=== PATIENT | female | born 1945 | race Caucasian/White ===

== ENCOUNTER → 2017-06-20 | Day surgery (SDC) | payer MEDICARE ==
[~2017-06-20] VITALS: Ht 149.9 cm; Wt 75.5 kg
[~2017-06-20] MED LIST: ATOR10TA15 PO; BUPIVACAINE HCL PF 0.5% 30 ML VIAL ONE; CEPH-460 PO; CHLORHEXIDINE GLUCONATE 2 % 1 PACK (2 CLOTHS) TOPICAL PRN; CITA10TA4 PO; CYCL10TA PO; DEXAMETHASONE SOD PHOS 4 MG/ML VIAL ONE; ERGO50000 PO; FENO130C PO; FLUT50SP EACH NARE; INSULIN HUMAN REGULAR 1,000 UNITS/10 ML VIAL SQ PRN; LACTATED RINGER'S 1000 ML IV PRN; LIDOCAINE HCL 2% 50 ML VIAL ONE; METOPROLOL TARTRATE 25 MG TAB PO PRN; MIDAZOLAM HCL 2 MG/2 ML VIAL ONE; NEOMYCIN/POLYMYXIN 1 ML G.U. IRRIGANT ONE; NORC5TAB PO; OMEP20CA5 PO; ONDANSETRON HCL 4 MG/2 ML VIAL ONE; PERC5TAB12 PO; POVIDONE IODINE 5% (ANTISEPSIS KIT) 4 APPLICATIONS EACH NARE PRN; SODIPAK2; SODIUM CHLORID 0.9% 500 ML IV PRN; TEMA15 PO; VENTAER INH; ceFAZolin 1,000 MG/NS 100 ML IV SCH
[2017-06-20 12:12] VITALS: TEMP 97.6
--- NOTE | 2017-06-20 12:31 | MP ---
cc: AC AMBRIZ III, M.D. DATE OF SURGERY: 06/20/2017 PREOPERATIVE DIAGNOSIS Right thumb trigger finger. PROCEDURE PERFORMED Right thumb A1 misha release. SURGEON Ac Ambriz III, MD PROCEDURE The patient was brought to the operating room and placed supine on the operating table. After the correct site and side of surgery were verified by members of each team in the room multiple times including the patient, myself, and after adequate preoperative markings, preoperative written consent were verified by everyone and after adequate preoperative time-out was performed to everyone's satisfaction and after adequate IV sedation had been achieved the right upper extremity was prepped and draped in traditional sterile surgical fashion. A 50/50 mixture of 2% plain lidocaine and 0.5% plain Marcaine was infiltrated in the skin and subcutaneous tissue overlying the A1 misha. The limb was exsanguinated with an Moo wrap and highly placed well-padded axillary tourniquet was inflated to 200 mmHg for total of 11 minutes. A transversely oriented incision within the skin creases was made and carried down through the skin and subcutaneous tissue. The A1 misha was identified and the flexor pollicis longus tendon was found to be completely stuck within it, was very tight and angulated. It was incised in its midline in its entirety freeing the FPL tendon which was then examined and was found to be only slightly abraded but otherwise non compromised. There was free excursion of the tendon exploration proximally and distally into the thumb did not reveal any other crossing bands of tissue anywhere. Some of the A1 misha was very thick and bulky was excised. The neurovascular bundles were protected the entire time. Thorough irrigation with a liters worth of saline was performed and the skin edges reapproximated using interrupted 5-0 Nylon sutures. The hand and arm was thoroughly cleansed and dried. Betadine, Adaptic dressing was applied on top of the wound followed by a bulky soft dressing. The axillary tourniquet was released. The hand and all the fingers including the thumb on the right became immediately soft, pink and warm and had brisk capillary refill of less than 2 seconds. Ac Ambriz III, MD LCB/SIDDHARTH /12:21 PM /12:25 PM
[2017-06-20 12:45] VITALS: BP 125/72; PULSE 81; RESP 16; O2SAT 97
== END | disposition home or self-care (01) ==
LOC: PHSDC 09:39
PROVIDERS: ATTEND Orthopaedic Surgery Hand Surgery
DX: M65.311 Trigger thumb, right thumb (principal)
CPT/HCPCS: 01810; 26055; J0690; J1100; J2250; J2405; J3010; J7120